=== PATIENT | male | born 1995 | race Caucasian/White ===

== ENCOUNTER 2017-02-20 13:13 | Emergency (ER) | payer SELFPAY ==
--- NOTE | 2017-02-20 13:29 | CPEKG ---
Heart Rate: 80 RR Interval: 750 P-R Interval: 196 QRSD Interval: 90 QT Interval: 360 QTC Interval: 416 P [place]: 39 QRS [place]: 72 T Wave [place]: 21 EKG Severity - NORMAL ECG - EKG Impression: SINUS RHYTHM Electronically Signed By: Chi House 20-Feb-2017 21:23:30
[2017-02-20] MEDS ORDERED: NS 1,000 ML IV ONE (13:48)
[2017-02-20] MEDS ORDERED: LORazepam 2 MG/ML INJ IVP ONE (13:48)
[2017-02-20 13:58] LABS: PLATELET COUNT 230 10^3/uL (150-400)
--- NOTE | 2017-02-20 14:01 | EDPHY ---
H & P Stated Complaint: near syncope Time Seen by Provider: 02/20/17 13:42 HPI/ROS: CHIEF COMPLAINT: "I felt dizzy " HISTORY OF PRESENT ILLNESS: 21-year-old male arrives via ambulance after he was at work at a construction site started to feel sudden onset of lightheadedness. He was able sit himself down symptoms would come and go, feeling like he was having near syncopal episodes coming in waves. Describes feeling hot, feeling nausea, feeling anxiety. History of heavy daily alcohol use states that he usually drinks himself to sleep every night, last drink of alcohol was last evening. Last evening he also snorted cocaine and uses daily nighttime marijuana via edible. As time I interview him he states that he is feeling "back to normal "but notes that he is tremulous. He denies hallucination. Denies seizure. Denies incontinence. Denies oral trauma. Denies palpitations. Denies dyspnea. REVIEW OF SYSTEMS: A ten point review of systems was performed and is negative with the exception of the items mentioned in the HPI PAST MEDICAL & SURGICAL HISTORY: No pertinent medical or surgical history SOCIAL HISTORY:Heavy daily alcohol use, typically drinks himself to sleep every evening. Snorted cocaine last evening. Daily nighttime edible marijuana. PHYSICAL EXAM (Prior to examination, patient consented to physical exam, hands were washed and my usual and customary physical exam procedures followed) 1) GENERAL: Well-developed, well-nourished, alert and oriented. Appears to be in no acute distress. 2) HEAD: Normocephalic, atraumatic 3) HEENT: Pupils equal, round, reactive to light bilaterally. Sclera anicteric. Nasopharynx, oropharynx, clear, no lesions. No signs of trauma. Ears bilaterally with normal tympanic membranes. 4) NECK: Full range of motion, no meningeal signs. 5) LUNGS: Clear auscultation bilaterally, no wheezes, no rhonchi, no retractions. 6) HEART: Regular rate and rhythm, no murmur, no heave, no gallop. 7) ABDOMEN: No guarding, no rebound, no focal tenderness, negative McBurney's, negative Cloud's, negative Rovsing's, negative peritoneal sign, 8) MUSCULOSKELETAL: Moving all extremities, no focal areas of tenderness, no obvious trauma. No peripheral edema or discoloration. 9) BACK: No CVA tenderness, no midline vertebral tenderness, no fluctuance, no step-off, no obvious trauma, no visual or palpable abnormality. 10) SKIN: No rash, no petechiae. 11) Psychiatric: Patient is oriented X 3, there is no agitation. He is tremulous. DIFFERENTIAL DIAGNOSIS: In no particular include but limited to cardiac dysrhythmia, acute alcohol withdrawal, seizure - Personal History Current Tetanus/Diphtheria Vaccine: Yes Current Tetanus Diphtheria and Acellular Pertussis (TDAP): Yes - Medical/Surgical History Hx Asthma: No Hx Chronic Respiratory Disease: No Hx Diabetes: No Hx Cardiac Disease: No Hx Renal Disease: No Hx Cirrhosis: No Hx Alcoholism: No Hx HIV/AIDS: No Hx Splenectomy or Spleen Trauma: No Other PMH: healthy per pt. - Social History Smoking Status: Never smoked Constitutional: Initial Vital Signs Temperature (C) 36.9 C 02/20/17 13:19 Heart Rate 85 02/20/17 13:19 Respiratory Rate 18 02/20/17 13:19 Blood Pressure 147/108 H 02/20/17 13:19 O2 Sat (%) 95 02/20/17 13:19 O2 Delivery Mode Room Air Allergies/Adverse Reactions: No Known Allergies Allergy (Unverified 02/20/17 13:51) Home Medications: Medication Instructions Recorded NK [No Known Home Meds] 02/20/17 Medical Decision Making ED Course/Re-evaluation: 1:44 p.m. p.m.: Care of patient under supervision of secondary supervising physician Dr House . 305 p.m. patient re-evaluated with serial exams. He has been given IV hydration, IV Ativan. This time states that he is feeling improvement. His tremors have resolved. Discussed his laboratory results, discussed his cocaine , marijuana, alcohol use. I recommended long-term sobriety from these. 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 I have recommend he not climb ladders, recommend he not be on roofs, not drive and similar as seizures not ruled out. Care of patient under supervision of secondary supervising physician Dr Chi House with whom I discussed case. - Data Points Laboratory Results: Laboratory Results 02/20/17 13:53 02/20/17 13:53 02/20/17 02/20/17 13:53 13:53 WBC 7.87 10^3/uL 10^3/uL (3.80-9.50) RBC 5.35 10^6/uL 10^6/uL (4.40-6.38) Hgb 16.3 g/dL g/dL (13.7-17.5) Hct 47.5 % % (40.0-51.0) MCV 88.8 fL fL (81.5-99.8) MCH 30.5 pg pg (27.9-34.1) MCHC 34.3 g/dL g/dL (32.4-36.7) RDW 13.1 % % (11.5-15.2) Plt Count 230 10^3/uL 10^3/uL (150-400) MPV 10.5 fL fL (8.7-11.7) Neut % (Auto) 57.0 % % (39.3-74.2) Lymph % (Auto) 34.4 % % (15.0-45.0) [place] % (Auto) 6.7 % % (4.5-13.0) Eos % (Auto) 1.0 % % (0.6-7.6) Baso % (Auto) 0.5 % % (0.3-1.7) Nucleat RBC Rel Count 0.0 % % (0.0-0.2) Absolute Neuts (auto) 4.48 10^3/uL 10^3/uL (1.70-6.50) Absolute Lymphs (auto) 2.71 10^3/uL 10^3/uL (1.00-3.00) Absolute Monos (auto) 0.53 10^3/uL 10^3/uL (0.30-0.80) Absolute Eos (auto) 0.08 10^3/uL 10^3/uL (0.03-0.40) Absolute Basos (auto) 0.04 10^3/uL 10^3/uL (0.02-0.10) Absolute Nucleated RBC 0.00 10^3/uL 10^3/uL (0-0.01) Immature Gran % 0.4 % % (0.0-1.1) Immature Gran # 0.03 10^3/uL 10^3/uL (0.00-0.10) Sodium 143 mEq/L mEq/L (134-144) Potassium 4.7 mEq/L mEq/L (3.5-5.2) Chloride 103 mEq/L mEq/L (97-110) Carbon Dioxide 23 mEq/l mEq/l (22-31) Anion Gap 17 mEq/L H mEq/L (8-16) BUN 15 mg/dL mg/dL (7-23) Creatinine 1.0 mg/dL mg/dL (0.7-1.3) Estimated GFR > 60 Glucose 101 mg/dL H mg/dL (70-100) Calcium 10.5 mg/dL H mg/dL (8.5-10.4) Ethyl Alcohol < 10 mg/dL mg/dL (0-10) Medications Given: Discontinued Medications Sodium Chloride (Ns) 1,000 mls @ 0 mls/hr IV ONCE ONE PRN Reason: Wide Open Stop: 02/20/17 13:49 Last Admin: 02/20/17 14:20 Dose: 1,000 mls Lorazepam (Ativan Injection) 1 mg IVP EDNOW ONE Stop: 02/20/17 13:49 Last Admin: 02/20/17 14:20 Dose: 1 mg Departure - Departure Disposition: Home, Routine, Self-Care Clinical Impression: Feeling faint Alcohol withdrawal Qualifiers: Complication of substance-induced condition: uncomplicated Qualified Code(s): F10.230 - Alcohol dependence with withdrawal, uncomplicated Condition: Good Instructions: Alcohol Withdrawal (ED), Near Syncope (ED) Additional Instructions: You may have had a seizure. Until your cleared by the your neurologist do not: Drive, swim alone, climb to heights, operate machinery. Referrals: [facility],. [Clinic] - 1-2 days without fail
[2017-02-20 15:31] VITALS: BP 157/97; PULSE 78; RESP 18; TEMP 98.4; O2SAT 96
== END 2017-02-20 15:30 | disposition home or self-care (01) ==
DX: R42 Dizziness and giddiness (principal); F10.230 Alcohol dependence with withdrawal, uncomplicated
CPT/HCPCS: 96374; G0480; J2060